=== PATIENT | female | born 1955 | race Caucasian/White ===

== ENCOUNTER 2018-05-14 12:24 | Outpatient (CLI) | payer BC ==
--- NOTE | 2018-05-14 13:55 | RAD ---
LEFT FOOT THREE VIEWS: 05/14/2018 HISTORY: Left foot pain, involving the third, fourth, and fifth metatarsals. COMPARISON: None. FINDINGS: Three views of the left foot show no evidence of acute fracture or dislocation. No significant degen erative changes are seen. No focal soft tissue swelling is seen. IMPRESSION: No evidence of acute osseous abnormality. POS: [facility]
== END 2018-05-14 12:25 | disposition home or self-care (01) ==
LOC: BICRAD 12:24
PROVIDERS: ATTEND Family Medicine
DX: M79.672 Pain in left foot (principal)

== ENCOUNTER 2021-04-26 07:55 | Outpatient (CLI) | payer MEDICARE, BC ==
[2021-04-26] MEDS ORDERED: Iopamidol 370 76% 100 ML VIAL ONE (09:10)
== END 2021-04-26 07:56 | disposition home or self-care (01) ==
LOC: BICCT 07:55
PROVIDERS: ATTEND Internal Medicine Gastroenterology
DX: R10.13 Epigastric pain (principal); K57.30 Diverticulosis of large intestine without perforation or abscess without bleeding; K76.0 Fatty (change of) liver, not elsewhere classified; L90.5 Scar conditions and fibrosis of skin; N28.9 Disorder of kidney and ureter, unspecified
CPT/HCPCS: 74177; 82565; Q9967

== ENCOUNTER 2021-04-28 13:00 | Outpatient (CLI) | payer MEDICARE, BC | END 2021-04-28 13:01 | disposition home or self-care (01) | LOC: BICRAD 13:00 | PROVIDERS: ATTEND Nurse Practitioner Family | DX: M25.561 Pain in right knee (principal) ==

== ENCOUNTER 2022-11-15 11:32 | Outpatient (CLI) | payer MEDICARE, BC | END 2022-11-15 11:33 | disposition home or self-care (01) | LOC: BICMAMMO 11:32 | PROVIDERS: ATTEND Family Medicine | DX: Z12.31 Encounter for screening mammogram for malignant neoplasm of breast (principal) | CPT/HCPCS: 77063; 77067 ==

== ENCOUNTER 2023-07-16 08:53 | Day surgery (SDC) | payer MEDICARE, BC ==
[2023-07-15 09:34] VITALS: BMI 25.8
[~2023-07-16 08:53] MED LIST: EPINEPHrine 0.3 MG in Ophthalmic Irrigation Solution 500 ML IRR SCH
[2023-07-16] MEDS ORDERED: Cyclopentolate W/ Phenylephrin 5 ML BOT ONE (10:10)
[2023-07-16] MEDS ORDERED: Midazolam HCl 2 mg/2 ml Vial ONE (10:33)
[2023-07-16] MEDS ORDERED: PROPOFOL 20 ML ONE (10:33)
[2023-07-16] MEDS ORDERED: fentaNYL 50 mcg/mL 1 mL Vial ONE (10:33)
[2023-07-16] MEDS ORDERED: Triamcinolone 40 MG/ML VIAL ONE (11:03)
[2023-07-16] MEDS ORDERED: CEFAZOLIN 1 GM VIAL ONE (11:03)
[2023-07-16] MEDS ORDERED: Maxitrol 0.1% Opth Oint 3.5 GM TUBE ONE (11:03)
[2023-07-16] MEDS ORDERED: Bupivacaine 0.75% 10 ML VIAL ONE (11:03)
[2023-07-16] MEDS ORDERED: Lidocaine 4% PF 5 ML AMP ONE (11:03)
[2023-07-16] MEDS ORDERED: Lidocaine 1% PF 5 ML VIAL ONE (11:03)
== END 2023-07-16 12:10 | disposition home or self-care (01) ==
LOC: SDC 08:53
PROVIDERS: ATTEND Ophthalmology Retina Specialist
PROC: 08T43ZZ Resection of Right Vitreous, Percutaneous Approach (ICD-10-PCS; principal; 2023-07-16)
DX: H43.821 Vitreomacular adhesion, right eye (principal)
CPT/HCPCS: 67041; J3010; J0171; J0690; J2250; J2704; J3301; J3490

== ENCOUNTER 2024-09-28 12:25 | Outpatient (CLI) | payer MEDICARE | END 2024-09-28 12:26 | disposition home or self-care (01) | LOC: BICCT 12:25 | PROVIDERS: ATTEND Family Medicine | DX: Z12.2 Encounter for screening for malignant neoplasm of respiratory organs (principal); Z87.891 Personal history of nicotine dependence | CPT/HCPCS: 71271 ==